=== PATIENT | male | born 1945 | race Caucasian/White ===

== ENCOUNTER 2019-02-07 11:07 | Emergency (ER) | payer MEDICARE, OTHER ==
[~2019-02-07] VITALS: Ht 180.3 cm; Wt 85.1 kg
[2019-02-07] MEDS ORDERED: INSULANT SC (11:23)
[2019-02-07] MEDS ORDERED: TRAD5TAB PO (11:23)
[2019-02-07] MEDS ORDERED: LANTINJ4 SC (11:23)
[2019-02-07] MEDS ORDERED: ASPI81CH33 PO (11:23)
[2019-02-07] MEDS ORDERED: LISI-542 PO (11:23)
[2019-02-07] MEDS ORDERED: UROCTAB2 PO (11:25)
[2019-02-07] MEDS ORDERED: MECLIZINE 25 MG TABLET PO ONE (12:15)
[2019-02-07 12:26] LABS: BASO % 0.3 % (0.0-1.0); EOS % 0.3 % (0.0-3.0); HEMATOCRIT 40.4 % (42.0-52.0); HEMOGLOBIN 13.9 g/dl (13.5-17.5); LYMPH # 1.4 10^3/uL (1.5-4.5); LYMPH % 15.1 % (24.0-44.0); MEAN CORPUSCULAR HEMOGLOBIN 33.5 pg (27.0-33.0); MEAN CORPUSCULAR HGB CONC 34.4 g/dl (32.0-36.5); MEAN CORPUSCULAR VOLUME 97.3 fl (80.0-96.0); MONO # 0.5 10^3/uL (0.0-0.8); MONO % 5.5 % (0.0-5.0); NEUTROPHILS % 78.4 % (36.0-66.0); PLATELET COUNT, AUTOMATED 166 10^3/uL (150-450); RED BLOOD COUNT 4.15 10^6/uL (4.30-6.10); WHITE BLOOD COUNT 8.9 10^3/uL (4.0-10.0)
[2019-02-07 12:36] LABS: INR 1.1; PROTHROMBIN TIME 13.9 SECONDS (11.8-14.0)
[2019-02-07 12:55] LABS: BLOOD UREA NITROGEN 20 MG/DL (7-18); CALCIUM LEVEL 9.4 MG/DL (8.8-10.2); CARBON DIOXIDE LEVEL 29 MEQ/L (21-32); CHLORIDE LEVEL 107 MEQ/L (98-107); CK-MB VALUE MASS 7.9 NG/ML (<3.6); CPK CREATINE PHOSPHOKINASE 397 U/L (39-308); CREATININE FOR GFR 1.47 MG/DL (0.70-1.30); GLOMERULAR FILTRATION RATE 50.1 (>42); GLUCOSE, FASTING 142 MG/DL (70-100); MAGNESIUM LEVEL 2.4 MG/DL (1.8-2.4); MB/CK RELATIVE INDEX 1.99 (< OR =4); POTASSIUM SERUM 4.4 MEQ/L (3.5-5.1); SODIUM LEVEL 142 MEQ/L (136-145); THYROXINE (T4) 8.3 UG/DL (4.5-12.0); TROPONIN I < 0.02 NG/ML (< 0.10)
--- NOTE | 2019-02-07 13:28 | REP ---
REASON: Dizziness. PRIORS: None. FINDINGS: The technique utilized in obtaining the radiograph has magnified the cardiac silhouette and accentuated the interstitial markings. The superior mediastinal structures are midline. The cardiac silhouette is unremarkable in size, shape, and position. The diaphragmatic surfaces of the lungs are regular, and the costophrenic angles are clear. The pulmonary dinh are clear. The imaged osseous structures are intact. IMPRESSION: There is no acute cardiopulmonary disease. Electronically Signed by Vega Pickett DO 02/07/2019 05:12 P
--- NOTE | 2019-02-07 14:15 | REP ---
CT HEAD WITHOUT CONTRAST: HISTORY: Dizziness. There is no intraparenchymal hemorrhage, mass, or midline shift. The ventricular system and cortical sulci are dilated consistent with minimal volume loss. There is no extracerebral collection. The visualized sinuses are clear. IMPRESSION: There is no intracranial lesion. Electronically Signed by James Goff MD 02/07/2019 06:03 P
[2019-02-07 14:30] VITALS: BP 114/61
[2019-02-07] MEDS ORDERED: MECL-68 PO (14:30)
--- NOTE | 2019-02-07 21:41 | ECGEPIP ---
[facility] - ED Test Date: 2019-02-07 Pat Name: JORDY LINARES Department: Room: - Gender: Male Trace Clerk: : 1945 Requested By: Maciej Campos Order Number: [id number] Reading MD: Maciej Yates Measurements Intervals [place] Rate: 52 P: 63 VA: 126 QRS: -11 QRSD: 89 T: -4 QT: 408 QTc: 380 Interpretive Statements SINUS BRADYCARDIA WITH SINUS ARRHYTHMIA NSTTW ABNORMALITIES NO PRIORS FOR COMPARISON Electronically Signed on 02-07-2019 21:41:15 EDT by Maciej Yates
== END 2019-02-07 14:56 | disposition home or self-care (01) ==
LOC: M ED 11:07
DX: R42 Dizziness and giddiness (principal); R00.1 Bradycardia, unspecified; E11.9 Type 2 diabetes mellitus without complications; I10 Essential (primary) hypertension; F17.200 Nicotine dependence, unspecified, uncomplicated; Z79.899 Other long term (current) drug therapy; Z79.4 Long term (current) use of insulin; Z79.82 Long term (current) use of aspirin